=== PATIENT | male | born 2000 | race African-American/Black ===

== ENCOUNTER 2020-03-08 06:30 | Emergency (ER) | payer OTHER ==
[~2020-03-08] VITALS: Ht 185.4 cm; Wt 96.0 kg
[2020-03-08 06:32] VITALS: BP 125/75
[2020-03-08] MEDS ORDERED: IBUPROFEN 600MG TABLET PO ONE (08:30)
== END 2020-03-08 08:17 | disposition left against medical advice (07) ==
LOC: ER 06:30
DX: B34.9 Viral infection, unspecified (principal); Z88.0 Allergy status to penicillin
CPT/HCPCS: 93005; 99283

== ENCOUNTER 2020-07-26 22:38 | Emergency (ER) | payer MEDICAID, OTHER ==
[~2020-07-26] VITALS: Ht 185.4 cm; Wt 90.0 kg
[2020-07-26 23:00] VITALS: BP 112/70
[2020-07-26 23:45] LABS: CLARITY URINE CLEAR (CLEAR); COLOR URINE YELLOW (YELLOW); KETONES URINE TRACE (NEGATIVE); LEUKOCYTE ESTERASE URINE NEGATIVE (NEGATIVE); NITRITE URINE NEGATIVE (NEGATIVE); OCCULT BLOOD URINE NEGATIVE (NEGATIVE); PH URINE 6.5 (4.5-8.0); PROTEIN URINE NEGATIVE (NEGATIVE); SPECIFIC GRAVITY URINE 1.026 (1.005-1.030); UROBILINOGEN URINE 0.2 E.U./dL (0.2-1.0)
[2020-07-26] MEDS ORDERED: CEFTRIAXONE SODIUM 500 MG/VIAL IM ONE (23:45)
[2020-07-26] MEDS ORDERED: AZITHROMYCIN 500 MG TABLET PO ONE (23:45)
[2020-07-26] MEDS ORDERED: LIDOCAINE HCL 1% 20ML VIAL (Pyxis) INJ INFIL ONE (23:45)
[2020-07-28 07:10] LABS: HIV SCREEN 4G Non Reactive (Non Reactive)
[2020-07-30 08:07] LABS: NEISSERIA GONORRHOEAE NAA Negative (Negative)
== END 2020-07-27 00:49 | disposition home or self-care (01) ==
LOC: ER 22:38
DX: N34.2 Other urethritis (principal); Z88.0 Allergy status to penicillin
CPT/HCPCS: 81003; 86592; 87389; 87491; 87591; 96372; 99283; J0696; J3490

== ENCOUNTER 2020-08-10 19:45 | Emergency (ER) | payer MEDICAID, OTHER ==
[~2020-08-10] VITALS: Ht 185.4 cm; Wt 104.0 kg
[2020-08-10 21:15] VITALS: BP 121/59
[2020-08-10] MEDS ORDERED: ACETAMINOPHEN 325MG TABLET PO ONE (21:15)
== END 2020-08-10 21:26 | disposition home or self-care (01) ==
LOC: ER 19:45
DX: K14.6 Glossodynia (principal); W26.8XXA Contact with other sharp object(s), not elsewhere classified, initial encounter; Y93.89 Activity, other specified; Y92.9 Unspecified place or not applicable; Z88.0 Allergy status to penicillin
CPT/HCPCS: 99282

== ENCOUNTER 2020-08-27 23:11 | Emergency (ER) | payer MEDICAID, OTHER ==
[~2020-08-27] VITALS: Ht 185.4 cm; Wt 114.0 kg
[2020-08-27 23:26] VITALS: BP 131/63
[2020-08-27] MEDS ORDERED: CEFTRIAXONE SODIUM 500 MG/VIAL IM ONE (23:45)
[2020-08-27] MEDS ORDERED: LIDOCAINE HCL 1% 20ML VIAL (Pyxis) INJ INFIL ONE (23:45)
[2020-08-27] MEDS ORDERED: DOXYCYCLINE HYCLATE 100MG CAPSULE PO ONE (23:45)
[2020-08-28 00:04] LABS: CLARITY URINE CLEAR (CLEAR); COLOR URINE YELLOW (YELLOW); KETONES URINE NEGATIVE (NEGATIVE); LEUKOCYTE ESTERASE URINE TRACE (NEGATIVE); NITRITE URINE NEGATIVE (NEGATIVE); OCCULT BLOOD URINE NEGATIVE (NEGATIVE); PH URINE 6.5 (4.5-8.0); PROTEIN URINE NEGATIVE (NEGATIVE); SPECIFIC GRAVITY URINE 1.023 (1.005-1.030)
[2020-08-28] MEDS ORDERED: DOXY100C2 MT ×2 (00:04→01:35)
[2020-08-30 08:10] LABS: NEISSERIA GONORRHOEAE NAA Negative (Negative)
== END 2020-08-28 00:11 | disposition left against medical advice (07) ==
LOC: ER 23:11
DX: R30.0 Dysuria (principal); Z88.0 Allergy status to penicillin
CPT/HCPCS: 81003; 87491; 87591; 99283

== ENCOUNTER 2020-08-28 00:55 | Emergency (ER) | payer OTHER ==
[~2020-08-28] VITALS: Ht 185.4 cm; Wt 95.0 kg
[~2020-08-28 00:55] MED LIST: DOXY100C2 MT
[2020-08-28] MEDS ORDERED: DOXYCYCLINE HYCLATE 100MG CAPSULE PO ONE (01:15)
[2020-08-28] MEDS ORDERED: CEFTRIAXONE SODIUM 500 MG/VIAL IM ONE (01:15)
[2020-08-28 01:35] VITALS: BP 122/71
[2020-08-28] MEDS ORDERED: DOXY100C2 MT (01:35)
[2020-08-28] MEDS ORDERED: LIDOCAINE HCL 1% 20ML VIAL (Pyxis) INJ INFIL ONE (01:45)
== END 2020-08-28 01:56 | disposition home or self-care (01) ==
LOC: ER 00:55
DX: R30.0 Dysuria (principal); J02.9 Acute pharyngitis, unspecified; Z88.0 Allergy status to penicillin
CPT/HCPCS: 96372; 99283; J0696; J3490; Z7610

== ENCOUNTER 2021-01-29 21:14 | Emergency (ER) | payer MEDICAID, OTHER ==
[~2021-01-29] VITALS: Ht 185.4 cm; Wt 96.0 kg
[~2021-01-29 21:14] MED LIST changes: -DOXY100C2 MT; +DOXY100C5 MT
[2021-01-29 21:39] VITALS: BP 131/58
== END 2021-01-29 23:14 | disposition left against medical advice (07) ==
LOC: ER 21:14
DX: R68.89 Other general symptoms and signs (principal); Z53.21 Procedure and treatment not carried out due to patient leaving prior to being seen by health care provider

== ENCOUNTER 2022-02-03 20:03 | Emergency (ER) | payer MEDICAID, OTHER ==
[~2022-02-03] VITALS: Ht 190.5 cm; Wt 110.0 kg
[2022-02-03 20:06] VITALS: BP 148/95
== END 2022-02-04 01:50 | disposition left against medical advice (07) ==
LOC: ER 20:03
DX: Z53.21 Procedure and treatment not carried out due to patient leaving prior to being seen by health care provider (principal)

== ENCOUNTER 2022-09-01 07:22 | Emergency (ER) | payer MEDICAID, OTHER ==
[~2022-09-01] VITALS: Ht 185.4 cm; Wt 100.0 kg
[2022-09-01 08:24] LABS: HEMATOCRIT 39.8 % (42.0-52.0); HEMOGLOBIN 13.1 g/dL (14.0-18.0); MEAN CORPUSCULAR HEMOGLOBIN 26.9 pg (28.0-32.0); MEAN CORPUSCULAR VOLUME 81.9 fL (80.0-94.0); PLATELET 306 x1000/uL (130-400); RED BLOOD CELL COUNT 4.86 mill/uL (4.7-6.1); RED CELL DISTRIBUTION WIDTH 15.4 % (11.6-14.6)
[2022-09-01 08:26] LABS: CHLORIDE 104 mEq/L (98-107)
[2022-09-01 08:26] LABS: CLARITY URINE CLEAR (CLEAR); COLOR URINE YELLOW (YELLOW); KETONES URINE TRACE (NEGATIVE); LEUKOCYTE ESTERASE URINE NEGATIVE (NEGATIVE); NITRITE URINE NEGATIVE (NEGATIVE); OCCULT BLOOD URINE NEGATIVE (NEGATIVE); PROTEIN URINE TRACE (NEGATIVE); SPECIFIC GRAVITY URINE 1.024 (1.005-1.030)
[2022-09-01] MEDS ORDERED: DICYCLOMINE 10 MG/5 ML ORAL SYR PO STA (09:19)
[2022-09-01] MEDS ORDERED: VISCOUS LIDOCAINE 2% 15 ML UDC PO STA (09:19)
[2022-09-01] MEDS ORDERED: MAGNESIUM/ALUMINUM HYDROXIDE/SIMETHICONE 30ML UDC PO STA (09:19)
[2022-09-01] MEDS ORDERED: FAMO-135 MT (09:22)
[2022-09-01 09:30] VITALS: BP 106/71
== END 2022-09-01 10:14 | disposition home or self-care (01) ==
LOC: ER 07:29
DX: K29.70 Gastritis, unspecified, without bleeding (principal); Z88.0 Allergy status to penicillin
CPT/HCPCS: 36415; 80053; 81003; 85027; 99284

== ENCOUNTER 2024-12-06 20:20 | Emergency (ER) | payer OTHER ==
[~2024-12-06 20:20] MED LIST changes: +FAMO-135 MT
== END 2024-12-06 21:17 | disposition left against medical advice (07) ==
LOC: ER 20:20
DX: Z11.3 Encounter for screening for infections with a predominantly sexual mode of transmission (principal); Z53.21 Procedure and treatment not carried out due to patient leaving prior to being seen by health care provider

== ENCOUNTER 2025-03-18 13:19 | Emergency (ER) | payer OTHER ==
[~2025-03-18] VITALS: Ht 185.4 cm; Wt 100.0 kg
[2025-03-18 13:26] VITALS: BP 136/84; PULSE 72; RESP 18; TEMP 36.7; O2SAT 98
== END 2025-03-18 13:30 | disposition left against medical advice (07) ==
LOC: ER 13:19
DX: M54.50 Low back pain, unspecified (principal); Z53.21 Procedure and treatment not carried out due to patient leaving prior to being seen by health care provider
CPT/HCPCS: 99281